=== PATIENT | female | born 1980 ===

== ENCOUNTER 2022-04-15 12:03 | Emergency (ER) | payer SELFPAY ==
[2022-04-15 12:39] VITALS: BP 116/75
== END 2022-04-15 14:30 | disposition left against medical advice (07) ==
LOC: ED 12:03
DX: R07.9 Chest pain, unspecified (principal); Z53.21 Procedure and treatment not carried out due to patient leaving prior to being seen by health care provider
CPT/HCPCS: 93005

== ENCOUNTER 2022-05-23 21:43 | Emergency (ER) | payer SELFPAY ==
[2022-05-23 23:07] VITALS: BP 95/51
== END 2022-05-24 20:18 | disposition left against medical advice (07) ==
LOC: ED 21:43
DX: L29.9 Pruritus, unspecified (principal); Z53.21 Procedure and treatment not carried out due to patient leaving prior to being seen by health care provider